=== PATIENT | male | born 1965 | race Asian ===

== ENCOUNTER 2025-01-02 21:26 | Inpatient (IN) | payer SELFPAY ==
[2025-01-02 22:05] LABS: #Basophils 0.09 10x3/uL (0.0-0.2); #Eosinophils 0.86 10x3/uL (0.0-0.7); #Monocytes 0.45 10x3/uL (0.11-0.59); #Neutrophils 2.63 10x3/uL (1.40-6.50); %Basophils 1.7 % (0.0-1.0); %Eosinophils 16.1 % (0.0-10.0); %Lymphocytes 24.0 % (21.0-51.0); %Monocytes 8.4 % (0.0-10.0); %Neutrophils 49.4 % (42.0-75.0); Hematocrit 43.0 % (42.0-52.0); Hemoglobin 14.8 g/dL (14.0-18.0); Mean Corpuscular Hemoglobin 31.3 pg (27.0-31.0); Mean Corpuscular Volume 90.9 fL (78.0-98.0); Platelet Count 232 10x3/uL (130-400); Red Blood Cell (RBC) Count 4.73 mill/uL (4.70-6.10); White Blood Cell (WBC) Count 5.33 10x3/uL (4.8-10.8)
[2025-01-02 22:51] LABS: ALT (SGPT) 27 U/L (Less than 45); AST (SGOT) 43 U/L (11-34); Albumin 3.7 g/dL (3.1-4.5); Alkaline Phosphatase 73 U/L (40-110); Anion Gap 16 mmol/L (10-20); BUN (Urea Nitrogen) 4 mg/dL (8.4-25.7); Bilirubin, Total 0.5 mg/dL (0.3-1.2); Calc. Creatinine Clearance 0 mL/min (70-130); Calcium 9.5 mg/dL (7.8-10.44); Carbon Dioxide 21 mmol/L (22-29); Chloride 96 mmol/L (98-107); Globulin 3.3 g/dL (2.4-3.5); Glucose 131 mg/dL (70-105); Lipase 22 U/L (8-78); Potassium 3.3 mmol/L (3.5-5.1); Sodium 130 mmol/L (136-145)
[2025-01-02] MEDS ORDERED: Acetaminophen 325 MG TAB PO PRN (23:07)
[2025-01-02] MEDS ORDERED: Ondansetron PF 4 MG/2 ML Vial IVP PRN (23:07)
[2025-01-03] MEDS ORDERED: Enoxaparin 60 MG (0.6 mL) SYRINGE SC SCH (01:00)
[2025-01-03] MEDS: Pantoprazole 40 MG VIAL IVP SCH ×2 (01:17→12:32)
[2025-01-03] MEDS: Enoxaparin 80 MG (0.8 mL) SYRINGE SC SCH ×2 (01:17→12:32)
[2025-01-03 01:29] VITALS: BMI 22.4
[2025-01-03 05:09] LABS: #Basophils 0.09 10x3/uL (0.0-0.2); #Eosinophils 0.91 10x3/uL (0.0-0.7); #Monocytes 0.54 10x3/uL (0.11-0.59); #Neutrophils 2.40 10x3/uL (1.40-6.50); %Basophils 1.6 % (0.0-1.0); %Eosinophils 16.4 % (0.0-10.0); %Lymphocytes 28.5 % (21.0-51.0); %Monocytes 9.7 % (0.0-10.0); %Neutrophils 43.3 % (42.0-75.0); Hematocrit 46.1 % (42.0-52.0); Hemoglobin 15.7 g/dL (14.0-18.0); Mean Corpuscular Hemoglobin 31.2 pg (27.0-31.0); Mean Corpuscular Volume 91.5 fL (78.0-98.0); Platelet Count 224 10x3/uL (130-400); Red Blood Cell (RBC) Count 5.04 mill/uL (4.70-6.10); White Blood Cell (WBC) Count 5.55 10x3/uL (4.8-10.8)
[2025-01-03] MEDS: Nitroglycerin 2% Ointment 1 INCH/1 GM Packet TOP SCH (05:26)
[2025-01-03 06:53] LABS: ALT (SGPT) 26 U/L (Less than 45); AST (SGOT) 40 U/L (11-34); Albumin 3.5 g/dL (3.1-4.5); Alkaline Phosphatase 74 U/L (40-110); Anion Gap 13 mmol/L (10-20); BUN (Urea Nitrogen) Less than 4 mg/dL (8.4-25.7); Bilirubin, Total 0.9 mg/dL (0.3-1.2); Calc. Creatinine Clearance 146 mL/min (70-130); Calcium 9.7 mg/dL (7.8-10.44); Carbon Dioxide 24 mmol/L (22-29); Cardiac Risk 2.8 (Less than 4.5); Chloride 100 mmol/L (98-107); Cholesterol 212 mg/dl (< 200 Desired); Globulin 3.6 g/dL (2.4-3.5); Glucose 98 mg/dL (70-105); HDL Cholesterol 75 mg/dL (>60 Neg Risk); LDL Cholesterol, Calculated 121 mg/dL; Magnesium 1.9 mg/dL (1.6-2.6); Potassium 4.1 mmol/L (3.5-5.1); Sodium 133 mmol/L (136-145); Triglycerides 82 mg/dL (Less than 150)
[2025-01-03] MEDS: Aspirin Chewable 81 MG TAB PO SCH (08:22)
[2025-01-03] MEDS ORDERED: Famotidine/PF 20 mg/2ml Vial SLOW IVP SCH (09:00)
[2025-01-03] MEDS ORDERED: Famotidine 20 MG TAB PO SCH (09:00)
[2025-01-03] MEDS ORDERED: Electrolyte Replacement Protocol 1 EACH FS SCH (11:30)
[2025-01-03] MEDS: Lisinopril 10 MG TAB PO SCH (12:31)
[2025-01-03] MEDS: Magnesium 2 GM/50 ML(in water) 2 GM in Premix 1 BAG IVPB SCH (14:08)
[2025-01-04 04:47] LABS: Hematocrit 43.1 % (42.0-52.0); Hemoglobin 14.3 g/dL (14.0-18.0); Mean Corpuscular Hemoglobin 31.0 pg (27.0-31.0); Mean Corpuscular Volume 93.5 fL (78.0-98.0); Platelet Count 206 10x3/uL (130-400); Red Blood Cell (RBC) Count 4.61 mill/uL (4.70-6.10); White Blood Cell (WBC) Count 6.17 10x3/uL (4.8-10.8)
[2025-01-04 05:13] LABS: Anion Gap 10 mmol/L (10-20); BUN (Urea Nitrogen) 7 mg/dL (8.4-25.7); Calc. Creatinine Clearance 134 mL/min (70-130); Calcium 8.7 mg/dL (7.8-10.44); Carbon Dioxide 23 mmol/L (22-29); Chloride 102 mmol/L (98-107); Glucose 97 mg/dL (70-105); Potassium 4.1 mmol/L (3.5-5.1); Sodium 131 mmol/L (136-145)
[2025-01-04] MEDS ORDERED: Lidocaine 1% (PF) 30 ML VIAL ONE (07:32)
[2025-01-04] MEDS ORDERED: Heparin 10,000 UNITS/ 10 ML VIAL ONE (07:32)
[2025-01-04] MEDS ORDERED: Adenosine 6 mg (2 mL) VIAL ONE (07:32)
[2025-01-04] MEDS ORDERED: Nitroglycerin 50 MG/250 ML BOT 250 ML ONE (07:33)
[2025-01-04] MEDS ORDERED: Lisinopril 10 MG TAB PO SCH (09:00)
[2025-01-04] MEDS: Multivit, Therapeutic 1 TAB PO SCH (09:19)
[2025-01-04] MEDS: Carvedilol 3.125 MG TAB PO SCH (09:19)
[2025-01-04] MEDS: Lisinopril 2.5 MG TAB PO SCH (09:19)
[2025-01-04] MEDS: Folic Acid 1 MG TAB PO SCH (09:19)
[2025-01-04] MEDS ORDERED: Iopamidol 370 76% 100 ML VIAL ONE (09:39)
[2025-01-05] MEDS ORDERED: Communication Order-Pharmacy FS SCH (07:20)
[2025-01-06] MEDS ORDERED: PHENYLEPHRINE-NS 100 MCG/ML 10 ML SYRINGE ONE ×2 (06:37→06:47)
[2025-01-06] MEDS ORDERED: Etomidate 40 MG (20 mL) VIAL ONE (06:38)
[2025-01-06] MEDS ORDERED: NOREPINEPHRINE 8 MG/250 ML-D5W 250 ML ONE (06:39)
[2025-01-06] MEDS ORDERED: Rocuronium Bromide 10 MG/ML (10ML VIAL) ONE ×3 (06:39→12:24)
[2025-01-06] MEDS ORDERED: PROPOFOL 20 ML ONE (06:42)
[2025-01-06] MEDS ORDERED: Heparin 10,000 UNITS/1 ML VIAL 30,000 UNITS in Sodium Chloride 0.9% 1,000 ML FS SCH (07:15)
[2025-01-06] MEDS ORDERED: Heparin 30,000 units/30 ml VIAL ONE (07:45)
[2025-01-06] MEDS ORDERED: Thrombin 5000 UNITS/5 ML VIAL ONE (07:45)
[2025-01-06] MEDS ORDERED: Calcium Chloride 1 GM/10 ML Abboject SYRINGE ONE ×2 (07:45→11:47)
[2025-01-06] MEDS ORDERED: Heparin 5,000 UNITS/ML VIAL ONE (07:45)
[2025-01-06] MEDS ORDERED: Cardioplegic Soln 1,000 ML BAG ONE (07:45)
[2025-01-06] MEDS ORDERED: CEFAZOLIN 1 GM VIAL ONE (07:49)
[2025-01-06] MEDS ORDERED: Thiamine 100 MG TAB PO SCH (09:00)
[2025-01-06] MEDS ORDERED: Lidocaine 2% 6 ML (Jelly) SYR ONE (11:47)
[2025-01-06] MEDS ORDERED: hydrALAZINE 20 MG/ML VIAL SLOW IVP PRN (12:27)
[2025-01-06] MEDS ORDERED: Ondansetron PF 4 MG/2 ML Vial IVP PRN (12:27)
[2025-01-06] MEDS ORDERED: Bisacodyl 10 MG SUPP PR PRN (12:27)
[2025-01-06] MEDS ORDERED: Nitroglycerin 50 MG/250 ML BOT 250 ML IVPB PRN (12:27)
[2025-01-06] MEDS ORDERED: NOREPINEPHRINE 8 MG/250 ML-D5W 250 ML IVPB PRN (12:27)
[2025-01-06] MEDS ORDERED: Phenylephrine 40 MG/NS 250 ML 250 ML IVPB PRN (12:27)
[2025-01-06] MEDS ORDERED: fentaNYL PF 100 MCG/2 ML SYRINGE ONE (12:27)
[2025-01-06] MEDS ORDERED: Mag-Al 1200 mg/1200 mg/30 ML UDCUP PO PRN (12:27)
[2025-01-06] MEDS ORDERED: Electrolyte Replacement Protocol 1 EACH FS SCH (12:30)
[2025-01-06] MEDS ORDERED: Dextrose 50% Abboject 50 ML SYRINGE IVP PRN (12:45)
[2025-01-06] MEDS ORDERED: Glucagon 1 MG/ML KIT SC PRN (12:45)
[2025-01-06] MEDS ORDERED: INSULIN REGULAR IN 0.9 % NACL 100 UNITS in Premix 1 BAG IVPB SCH (12:45)
[2025-01-06 13:03] LABS: Actual Bicarbonate (HCO3a) 23.3 mEq/L (22-28); Base Excess (BEa) -2.6 mEq/L (-2.0 to +3.0); CO2 Tension 44.5 mmHg (35.0-45.0); Calcium, Ionized (arterial) 1.27 mmol/L (1.12-1.30); Hematocrit-ABG 34 % (42.0-52.0); Hemoglobin (Hb) 11.6 g/dL (14.0-18.0); O2 Tension (PaO2), arterial 197.8 mmHg (> 80.0); Potassium - ABG Lab 3.12 mmol/L (3.70-5.30); pH, Arterial 7.336 (7.35-7.45)
[2025-01-06 13:05] LABS: ALV-art Gradient 174.375 mmHg (0-20); Puncture Site Arterial Line
[2025-01-06 13:15] LABS: #Basophils 0.05 10x3/uL (0.0-0.2); #Eosinophils 0.44 10x3/uL (0.0-0.7); #Monocytes 0.18 10x3/uL (0.11-0.59); #Neutrophils 11.39 10x3/uL (1.40-6.50); %Basophils 0.4 % (0.0-1.0); %Eosinophils 3.2 % (0.0-10.0); %Lymphocytes 9.8 % (21.0-51.0); %Monocytes 1.3 % (0.0-10.0); %Neutrophils 83.7 % (42.0-75.0); Hematocrit 32.0 % (42.0-52.0); Hemoglobin 10.5 g/dL (14.0-18.0); Mean Corpuscular Hemoglobin 31.3 pg (27.0-31.0); Mean Corpuscular Volume 95.5 fL (78.0-98.0); Platelet Count 101 10x3/uL (130-400); Red Blood Cell (RBC) Count 3.35 mill/uL (4.70-6.10); White Blood Cell (WBC) Count 13.61 10x3/uL (4.8-10.8)
[2025-01-06] MEDS: Post-Op Insulin Drip Protocol IVPB ONE (13:23)
[2025-01-06 13:29] LABS: INR-International Normal Ratio 1.3; Prothrombin Time 16.3 sec (12.0-14.7)
[2025-01-06 13:30] LABS: PTT 32.3 sec (22.9-36.1)
[2025-01-06] MEDS: Magnesium 2 GM/50 ML(in water) 2 GM in Premix 1 BAG IVPB SCH (13:40)
[2025-01-06] MEDS: NS 0.9% w/ 20 MEQ KCL 1,000 ML IV SCH (13:40)
[2025-01-06 13:41] LABS: Burr Cells SLIGHT = 2-5 cells HPF (0-1); Platelet Adequacy Comment Platelets Decreased
[2025-01-06 13:43] LABS: Anion Gap 11 mmol/L (10-20); BUN (Urea Nitrogen) 6 mg/dL (8.4-25.7); Calc. Creatinine Clearance 151 mL/min (70-130); Calcium 8.3 mg/dL (7.8-10.44); Carbon Dioxide 22 mmol/L (22-29); Chloride 113 mmol/L (98-107); Glucose 64 mg/dL (70-105); Potassium 3.1 mmol/L (3.5-5.1); Sodium 143 mmol/L (136-145)
[2025-01-06] MEDS: niCARdipine 25 MG in Sodium Chloride 0.9% 250 ML 250 ML IVPB PRN (14:01)
[2025-01-06] MEDS: Albumin 5% 12.5 GM (250 mL) BOT IVPB PRN ×3 (14:50→17:16)
[2025-01-06 16:15] LABS: Actual Bicarbonate (HCO3a) 21.8 mEq/L (22-28); Base Excess (BEa) -3.0 mEq/L (-2.0 to +3.0); CO2 Tension 37.8 mmHg (35.0-45.0); Calcium, Ionized (arterial) 1.08 mmol/L (1.12-1.30); Hematocrit-ABG 30 % (42.0-52.0); Hemoglobin (Hb) 10.1 g/dL (14.0-18.0); O2 Tension (PaO2), arterial 145.8 mmHg (> 80.0); Potassium - ABG Lab 3.51 mmol/L (3.70-5.30); pH, Arterial 7.378 (7.35-7.45)
[2025-01-06 16:17] LABS: Puncture Site Arterial Line
[2025-01-06 16:18] LABS: ALV-art Gradient 92.150 mmHg (0-20)
[2025-01-06] MEDS: Potassium Chloride 20 MEQ (100 mL) BAG IVPB PRN (16:19)
[2025-01-06 17:48] LABS: Magnesium 2.4 mg/dL (1.6-2.6)
[2025-01-06 18:56] LABS: Hematocrit 26.6 % (42.0-52.0); Hemoglobin 8.7 g/dL (14.0-18.0)
[2025-01-06 19:06] LABS: Potassium 4.1 mmol/L (3.5-5.1)
[2025-01-06] MEDS: Famotidine/PF 20 mg/2ml Vial SLOW IVP SCH (20:23)
[2025-01-07] MEDS: Transdermal Patch Removal TOP SCH (00:39)
[2025-01-07 04:30] LABS: #Basophils Less than 0.03 10x3/uL (0.0-0.2); #Eosinophils Less than 0.03 10x3/uL (0.0-0.7); #Monocytes 0.61 10x3/uL (0.11-0.59); #Neutrophils 5.47 10x3/uL (1.40-6.50); %Basophils 0.3 % (0.0-1.0); %Eosinophils 0.1 % (0.0-10.0); %Lymphocytes 9.1 % (21.0-51.0); %Monocytes 9.1 % (0.0-10.0); %Neutrophils 81.1 % (42.0-75.0); Hematocrit 21.7 % (42.0-52.0); Hemoglobin 6.9 g/dL (14.0-18.0); Mean Corpuscular Hemoglobin 31.5 pg (27.0-31.0); Mean Corpuscular Volume 99.1 fL (78.0-98.0); Platelet Count 96 10x3/uL (130-400); Red Blood Cell (RBC) Count 2.19 mill/uL (4.70-6.10); White Blood Cell (WBC) Count 6.74 10x3/uL (4.8-10.8)
[2025-01-07 04:54] LABS: Anion Gap 18 mmol/L (10-20); BUN (Urea Nitrogen) 7 mg/dL (8.4-25.7); Calc. Creatinine Clearance 118 mL/min (70-130); Calcium 7.7 mg/dL (7.8-10.44); Carbon Dioxide 18 mmol/L (22-29); Chloride 112 mmol/L (98-107); Glucose 105 mg/dL (70-105); Magnesium 2.1 mg/dL (1.6-2.6); Potassium 4.0 mmol/L (3.5-5.1); Sodium 144 mmol/L (136-145)
[2025-01-07] MEDS: Magnesium 2 GM/50 ML(in water) 2 GM in Premix 1 BAG IVPB SCH (08:13)
[2025-01-07] MEDS: Aspirin 325 MG TAB PO SCH (08:14)
[2025-01-07] MEDS: Heparin 5,000 UNITS/ML VIAL SC SCH (08:14)
[2025-01-07] MEDS: Senokot S 8.6-50 MG TAB PO SCH (08:14)
[2025-01-07 11:15] LABS: #Basophils Less than 0.03 10x3/uL (0.0-0.2); #Eosinophils 0.03 10x3/uL (0.0-0.7); #Monocytes 0.88 10x3/uL (0.11-0.59); #Neutrophils 6.80 10x3/uL (1.40-6.50); %Basophils 0.2 % (0.0-1.0); %Eosinophils 0.3 % (0.0-10.0); %Lymphocytes 11.2 % (21.0-51.0); %Monocytes 10.1 % (0.0-10.0); %Neutrophils 77.7 % (42.0-75.0); Hematocrit 26.3 % (42.0-52.0); Hemoglobin 8.5 g/dL (14.0-18.0); Mean Corpuscular Hemoglobin 30.7 pg (27.0-31.0); Mean Corpuscular Volume 94.9 fL (78.0-98.0); Platelet Count 108 10x3/uL (130-400); Red Blood Cell (RBC) Count 2.77 mill/uL (4.70-6.10); White Blood Cell (WBC) Count 8.75 10x3/uL (4.8-10.8)
[2025-01-07] MEDS: Guaifenesin DM 100-10/5 ML UDCUP PO PRN (12:41)
[2025-01-07] MEDS ORDERED: Artificial Tear Ophth Sol 15 ML BOT EA EYE PRN (13:39)
[2025-01-07] MEDS ORDERED: Mineral Oil ENEMA PR PRN (13:39)
[2025-01-07] MEDS ORDERED: Nitroglycerin 0.4 MG TAB (25 Tab Bottle) SL PRN (13:39)
[2025-01-07] MEDS: diphenhydrAMINE 25 MG CAP PO PRN (22:07)
[2025-01-08] MEDS: Digoxin 0.5 MG/2 ML AMP SLOW IVP SCH (01:55)
[2025-01-08] MEDS: Albumin 25% 25 GM (100 mL) BOT IVPB SCH (03:18)
[2025-01-08] MEDS: Metoprolol Tartrate 5 MG (5 mL) VIAL IVP SCH (03:18)
[2025-01-08] MEDS: Diltiazem HCl/D5W 125 MG in Premix 1 BAG IVPB SCH (04:27)
[2025-01-08 04:42] LABS: Anion Gap 12 mmol/L (10-20); BUN (Urea Nitrogen) 8 mg/dL (8.4-25.7); Calc. Creatinine Clearance 126 mL/min (70-130); Calcium 8.3 mg/dL (7.8-10.44); Carbon Dioxide 21 mmol/L (22-29); Chloride 109 mmol/L (98-107); Glucose 103 mg/dL (70-105); Magnesium 2.3 mg/dL (1.6-2.6); Potassium 3.7 mmol/L (3.5-5.1); Sodium 138 mmol/L (136-145)
[2025-01-08 05:05] LABS: #Basophils 0.06 10x3/uL (0.0-0.2); #Eosinophils 0.08 10x3/uL (0.0-0.7); #Monocytes 1.06 10x3/uL (0.11-0.59); #Neutrophils 7.94 10x3/uL (1.40-6.50); %Basophils 0.6 % (0.0-1.0); %Eosinophils 0.8 % (0.0-10.0); %Lymphocytes 11.0 % (21.0-51.0); %Monocytes 10.2 % (0.0-10.0); %Neutrophils 76.6 % (42.0-75.0); Hematocrit 26.4 % (42.0-52.0); Hemoglobin 8.7 g/dL (14.0-18.0); Mean Corpuscular Hemoglobin 30.9 pg (27.0-31.0); Mean Corpuscular Volume 93.6 fL (78.0-98.0); Platelet Count 115 10x3/uL (130-400); Red Blood Cell (RBC) Count 2.82 mill/uL (4.70-6.10); White Blood Cell (WBC) Count 10.36 10x3/uL (4.8-10.8)
[2025-01-08] MEDS: Potassium Phosphate 30 MMOL in Sodium Chloride 0.9% 250 ML 250 ML IVPB SCH ×2 (06:45→18:13)
[2025-01-08] MEDS ORDERED: Magnesium 2 GM/50 ML(in water) 2 GM in Premix 1 BAG IVPB SCH (09:00)
[2025-01-08] MEDS: Amiodarone 200 MG TAB PO SCH (14:26)
[2025-01-08 16:30] LABS: Anion Gap 8 mmol/L (10-20); BUN (Urea Nitrogen) 12 mg/dL (8.4-25.7); Calc. Creatinine Clearance 125 mL/min (70-130); Calcium 8.4 mg/dL (7.8-10.44); Carbon Dioxide 24 mmol/L (22-29); Chloride 108 mmol/L (98-107); Glucose 118 mg/dL (70-105); Magnesium 2.7 mg/dL (1.6-2.6); Potassium 3.4 mmol/L (3.5-5.1); Sodium 137 mmol/L (136-145)
[2025-01-09 03:56] LABS: #Basophils 0.06 10x3/uL (0.0-0.2); #Eosinophils 0.05 10x3/uL (0.0-0.7); #Monocytes 1.18 10x3/uL (0.11-0.59); #Neutrophils 8.20 10x3/uL (1.40-6.50); %Basophils 0.5 % (0.0-1.0); %Eosinophils 0.5 % (0.0-10.0); %Lymphocytes 13.0 % (21.0-51.0); %Monocytes 10.6 % (0.0-10.0); %Neutrophils 74.0 % (42.0-75.0); Hematocrit 25.6 % (42.0-52.0); Hemoglobin 8.2 g/dL (14.0-18.0); Mean Corpuscular Hemoglobin 30.1 pg (27.0-31.0); Mean Corpuscular Volume 94.1 fL (78.0-98.0); Platelet Count 124 10x3/uL (130-400); Red Blood Cell (RBC) Count 2.72 mill/uL (4.70-6.10); White Blood Cell (WBC) Count 11.08 10x3/uL (4.8-10.8)
[2025-01-09 04:07] LABS: Anion Gap 12 mmol/L (10-20); BUN (Urea Nitrogen) 11 mg/dL (8.4-25.7); Calc. Creatinine Clearance 135 mL/min (70-130); Calcium 8.1 mg/dL (7.8-10.44); Carbon Dioxide 21 mmol/L (22-29); Chloride 105 mmol/L (98-107); Glucose 107 mg/dL (70-105); Magnesium 2.3 mg/dL (1.6-2.6); Potassium 3.8 mmol/L (3.5-5.1); Sodium 134 mmol/L (136-145)
[2025-01-09] MEDS: Furosemide 40 MG (4 mL) VIAL SLOW IVP SCH (06:55)
[2025-01-09] MEDS: Potassium Phosphate 30 MMOL in Sodium Chloride 0.9% 250 ML 250 ML IVPB SCH (08:46)
[2025-01-10 04:00] LABS: #Basophils 0.04 10x3/uL (0.0-0.2); #Eosinophils Less than 0.03 10x3/uL (0.0-0.7); #Monocytes 1.16 10x3/uL (0.11-0.59); #Neutrophils 7.47 10x3/uL (1.40-6.50); %Basophils 0.4 % (0.0-1.0); %Eosinophils 0.2 % (0.0-10.0); %Lymphocytes 11.0 % (21.0-51.0); %Monocytes 11.7 % (0.0-10.0); %Neutrophils 75.7 % (42.0-75.0); Hematocrit 23.8 % (42.0-52.0); Hemoglobin 7.7 g/dL (14.0-18.0); Mean Corpuscular Hemoglobin 30.3 pg (27.0-31.0); Mean Corpuscular Volume 93.7 fL (78.0-98.0); Platelet Count 174 10x3/uL (130-400); Red Blood Cell (RBC) Count 2.54 mill/uL (4.70-6.10); White Blood Cell (WBC) Count 9.88 10x3/uL (4.8-10.8)
[2025-01-10] MEDS: Acetaminophen 325 MG TAB PO PRN (04:04)
[2025-01-10 04:24] LABS: Anion Gap 11 mmol/L (10-20); BUN (Urea Nitrogen) 10 mg/dL (8.4-25.7); Calc. Creatinine Clearance 134 mL/min (70-130); Calcium 8.1 mg/dL (7.8-10.44); Carbon Dioxide 24 mmol/L (22-29); Chloride 101 mmol/L (98-107); Glucose 108 mg/dL (70-105); Magnesium 2.0 mg/dL (1.6-2.6); Potassium 3.3 mmol/L (3.5-5.1); Sodium 133 mmol/L (136-145)
[2025-01-10] MEDS: Amiodarone 200 MG TAB PO SCH (08:55)
[2025-01-10] MEDS: Magnesium 2 GM/50 ML(in water) 2 GM in Premix 1 BAG IVPB SCH (08:55)
[2025-01-10] MEDS: PHOS-NAK 1 PKT PACK PO SCH (08:57)
[2025-01-10] MEDS: Potassium Chloride 40 MEQ in Premix 1 BAG IVPB SCH (11:12)
[2025-01-10 15:13] LABS: Magnesium 2.6 mg/dL (1.6-2.6); Potassium 3.2 mmol/L (3.5-5.1)
[2025-01-10 20:31] VITALS: BMI 22.8
[2025-01-11 04:09] LABS: #Basophils 0.04 10x3/uL (0.0-0.2); #Eosinophils 0.24 10x3/uL (0.0-0.7); #Monocytes 1.07 10x3/uL (0.11-0.59); #Neutrophils 6.40 10x3/uL (1.40-6.50); %Basophils 0.4 % (0.0-1.0); %Eosinophils 2.6 % (0.0-10.0); %Lymphocytes 14.4 % (21.0-51.0); %Monocytes 11.7 % (0.0-10.0); %Neutrophils 70.4 % (42.0-75.0); Hematocrit 27.1 % (42.0-52.0); Hemoglobin 8.7 g/dL (14.0-18.0); Mean Corpuscular Hemoglobin 30.4 pg (27.0-31.0); Mean Corpuscular Volume 94.8 fL (78.0-98.0); Platelet Count 259 10x3/uL (130-400); Red Blood Cell (RBC) Count 2.86 mill/uL (4.70-6.10); White Blood Cell (WBC) Count 9.11 10x3/uL (4.8-10.8)
[2025-01-11 04:19] LABS: Anion Gap 16 mmol/L (10-20); BUN (Urea Nitrogen) 10 mg/dL (8.4-25.7); Calc. Creatinine Clearance 128 mL/min (70-130); Calcium 8.6 mg/dL (7.8-10.44); Carbon Dioxide 22 mmol/L (22-29); Chloride 101 mmol/L (98-107); Glucose 90 mg/dL (70-105); Magnesium 2.3 mg/dL (1.6-2.6); Potassium 3.5 mmol/L (3.5-5.1); Sodium 135 mmol/L (136-145)
[2025-01-11 15:13] LABS: Potassium 3.1 mmol/L (3.5-5.1)
[2025-01-12 12:44] LABS: Potassium 3.6 mmol/L (3.5-5.1)
[2025-01-12 14:47] VITALS: BP 112/69; TEMP 98.1
== END 2025-01-12 16:26 | disposition home or self-care (01) | DRG 234 ==
LOC: ERS 21:26 → OBSVTOIN 23:09 → OBS 23:09 → CCU 01-06 13:13 → PCU 01-07 22:47
PROVIDERS: ADMIT Internal Medicine; ATTEND Family Medicine
PROC: B2111ZZ Fluoroscopy of Multiple Coronary Arteries using Low Osmolar Contrast (ICD-10-PCS; principal; 2025-01-02)
PROC: 4A023N7 Measurement of Cardiac Sampling and Pressure, Left Heart, Percutaneous Approach (ICD-10-PCS; 2025-01-02)
PROC: B2151ZZ Fluoroscopy of Left Heart using Low Osmolar Contrast (ICD-10-PCS; 2025-01-02)
PROC: 02100Z9 Bypass Coronary Artery, One Artery from Left Internal Mammary, Open Approach (ICD-10-PCS; 2025-01-06)
PROC: 021109W Bypass Coronary Artery, Two Arteries from Aorta with Autologous Venous Tissue, Open Approach (ICD-10-PCS; 2025-01-06)
PROC: 06BQ4ZZ Excision of Left Saphenous Vein, Percutaneous Endoscopic Approach (ICD-10-PCS; 2025-01-06)
PROC: 0PQ00ZZ Repair Sternum, Open Approach (ICD-10-PCS; 2025-01-06)
PROC: 02L73CK Occlusion of Left Atrial Appendage with Extraluminal Device, Percutaneous Approach (ICD-10-PCS; 2025-01-06)
PROC: 5A1221Z Performance of Cardiac Output, Continuous (ICD-10-PCS; 2025-01-06)
PROC: 05H533Z Insertion of Infusion Device into Right Subclavian Vein, Percutaneous Approach (ICD-10-PCS; 2025-01-06)
PROC: 3E03329 Introduction of Other Anti-infective into Peripheral Vein, Percutaneous Approach (ICD-10-PCS; 2025-01-06)
PROC: 3E033XZ Introduction of Vasopressor into Peripheral Vein, Percutaneous Approach (ICD-10-PCS; 2025-01-06)
PROC: 30233J1 Transfusion of Nonautologous Serum Albumin into Peripheral Vein, Percutaneous Approach (ICD-10-PCS; 2025-01-06)
PROC: 4A03351 Measurement of Arterial Flow, Peripheral, Percutaneous Approach (ICD-10-PCS; 2025-01-06)
PROC: 30233N1 Transfusion of Nonautologous Red Blood Cells into Peripheral Vein, Percutaneous Approach (ICD-10-PCS; 2025-01-07)
PROC: 0BP1XDZ Removal of Intraluminal Device from Trachea, External Approach (ICD-10-PCS; 2025-01-07)
DX: I21.4 Non-ST elevation (NSTEMI) myocardial infarction (principal); E87.1 Hypo-osmolality and hyponatremia; D62 Acute posthemorrhagic anemia; I10 Essential (primary) hypertension; E78.5 Hyperlipidemia, unspecified; I25.10 Atherosclerotic heart disease of native coronary artery without angina pectoris; F17.210 Nicotine dependence, cigarettes, uncomplicated; E87.6 Hypokalemia; E78.00 Pure hypercholesterolemia, unspecified; F10.20 Alcohol dependence, uncomplicated; I48.0 Paroxysmal atrial fibrillation; Z91.014 Allergy to mammalian meats; Z71.6 Tobacco abuse counseling; E83.39 Other disorders of phosphorus metabolism; Z79.899 Other long term (current) drug therapy
CPT/HCPCS: 36415; 36416; 36430; 71045; 80048; 80053; 80061; 82805; 83036; 83690; 83735; 83880; 84100; 84132; 84484; 85025; 85027; 85610; 85730; 86850; 86900; 86901; 93005; 93010; 93306; 93458; 93798; 94002; 94150; 94640; 94760; 96372; 96374; 99152; A4311; A4648; C1751; C1769; C1887; C1889; C1894; G0378; J0153; J0169; J0583; J0665; J0690; J1100; J1160; J1644; J1650; J1815; J1940; J2250; J2270; J2440; J2470; J2704; J2720; J3010; J3373; J3411; J3475; J3480; J7050; J7620; P9016; P9045; P9047; Q9967; S0017